=== PATIENT | male | born 1970 | race Caucasian/White ===

== ENCOUNTER 2018-08-04 16:36 | Emergency (ER) | payer BC ==
--- NOTE | 2018-08-04 19:15 | RAD REPORT ---
EXAM DESCRIPTION: RAD - Foot Right 3 View - 08/04/2018 6:50 pm CLINICAL HISTORY: Right foot pain FINDINGS: No fracture or dislocation is seen Moderate calcaneal spurs
--- NOTE | 2018-08-04 19:26 | ER ---
Nurse's Notes [facility] Name: Riley Whalen Age: 47 yrs Sex: Male : 1970 Arrival Date: 08/04/2018 Time: 16:39 Bed 12 Private MD: Diagnosis: Pain in right foot;Calcaneal spur, right foot Presentation: 08/04 16:44 Presenting complaint: Patient states: R heel pain x 1 week. Denies injury. Transition ss of care: patient was not received from another setting of care. Onset of symptoms was July 28, 2018. Risk Assessment: Do you want to hurt yourself or someone else? Patient reports no desire to harm self or others. Initial Sepsis Screen: Does the patient meet any 2 criteria? No. Patient's initial sepsis screen is negative. Does the patient have a suspected source of infection? No. Patient's initial sepsis screen is negative. Care prior to arrival: None. 16:44 Method Of Arrival: Ambulatory ss 16:44 Acuity: VIOLETA 4 ss Historical: - Allergies: 16:46 No Known Allergies; ss - Home Meds: 16:46 unknown blood pressure medication [Active]; ss - PMHx: 16:46 Hypertension; ss - PSHx: 16:46 None; ss - Immunization history:: Adult Immunizations up to date. - Social history:: Smoking status: Patient/guardian denies using tobacco. - Ebola Screening: : Patient denies exposure to infectious person Patient denies travel to an Ebola-affected area in the 21 days before illness onset. Screenin:10 Abuse screen: Denies threats or abuse. Denies injuries from another. Nutritional aj1 screening: No deficits noted. Tuberculosis screening: No symptoms or risk factors identified. 20:14 Fall Risk None identified. aj1 Assessment: 18:10 General: Appears in no apparent distress. uncomfortable, Behavior is calm, cooperative, aj1 appropriate for age. Pain: Complains of pain in heel of right foot. Neuro: Level of Consciousness is awake, alert, obeys commands, Oriented to person, place, time, situation. Cardiovascular: Patient's skin is warm and dry. Respiratory: Airway is patent Respiratory effort is even, unlabored, Respiratory pattern is regular, symmetrical. GI: No signs and/or symptoms were reported involving the gastrointestinal system. : No signs and/or symptoms were reported regarding the genitourinary system. EENT: No signs and/or symptoms were reported regarding the EENT system. Derm: No signs and/or symptoms reported regarding the dermatologic system. Skin is pink, warm \T\ dry. normal. Musculoskeletal: Range of motion: intact in all extremities. 19:10 Reassessment: Patient appears in no apparent distress at this time. No changes from aj1 previously documented assessment. Patient and/or family updated on plan of care and expected duration. Pain level reassessed. Patient is alert, oriented x 3, equal unlabored respirations, skin warm/dry/pink. 20:13 Reassessment: Patient appears in no apparent distress at this time. No changes from aj1 previously documented assessment. Patient and/or family updated on plan of care and expected duration. Pain level reassessed. Patient is alert, oriented x 3, equal unlabored respirations, skin warm/dry/pink. Vital Signs: 16:46 BP 150 / 99; Pulse 67; Resp 16 S; Temp 97.8(TE); Pulse Ox 97% on R/A; Weight 83.91 kg; ss Height 6 ft. 0 in. (182.88 cm); Pain 4/10; 16:46 Body Mass Index 25.09 (83.91 kg, 182.88 cm) ED Course: 16:39 Patient arrived in ED. as 16:45 Triage completed. ss 16:46 Arm band placed on right wrist. ss 17:57 Arturo Sadlana NP is PHCP. pm1 17:57 Chris Contreras MD is Attending Physician. pm1 18:10 Eloina Gregg, SANTOS is Primary Nurse. aj1 18:10 Patient has correct armband on for positive identification. Bed in low position. Call aj1 light in reach. Side rails up X 1. 18:10 No provider procedures requiring assistance completed. aj1 18:51 Foot Right 3 View XRAY In Process Unspecified. EDMS 20:14 Patient did not have IV access during this emergency room visit. aj1 Administered Medications: No medications were administered Outcome: 19:25 Discharge ordered by . pm1 20:14 Discharged to home ambulatory. aj1 20:14 Condition: good 20:14 Discharge instructions given to patient, Instructed on discharge instructions, follow up and referral plans. medication usage, Demonstrated understanding of instructions, follow-up care, medications, Prescriptions given X 2. 20:14 Patient left the ED. aj1 Signatures: Dispatcher [employer] EDEloina Villar RN RN aj1 Jewell Cain Shelby, RN RN ss Arturo Saldana, AGENCY CASHIER AGENCY CASHIER pm1
--- NOTE | 2018-08-04 19:26 | EDPHYS ---
Physician Documentation [facility] Name: Riley Whalen Age: 47 yrs Sex: Male : 1970 Arrival Date: 08/04/2018 Time: 16:39 Bed 12 Private MD: ED Physician Chris Contreras HPI: 08/04 19:21 This 47 yrs old Male presents to ER via Ambulatory with complaints of Right pm1 Foot Pain. 19:21 The patient presents with pain, that is acute. The complaints affect the right heel. pm1 Context: The problem was sustained at home, resulted from an unknown cause, the patient can fully bear weight, the patient is able to ambulate, Problem is a result from a previous injury: No. Onset: The symptoms/episode began/occurred 1 week(s) ago. Modifying factors: The symptoms are alleviated by nothing. the symptoms are aggravated by weight bearing. Associated signs and symptoms: Pertinent negatives calf tenderness, fever, swelling, tingling. Treatment prior to arrival includes: no previous treatment. Severity of symptoms: in the emergency department the symptoms are actually worse. The patient has not experienced similar symptoms in the past. The patient has not recently seen a physician. Historical: - Allergies: 16:46 No Known Allergies; ss - Home Meds: 16:46 unknown blood pressure medication [Active]; ss - PMHx: 16:46 Hypertension; ss - PSHx: 16:46 None; ss - Immunization history:: Adult Immunizations up to date. - Social history:: Smoking status: Patient/guardian denies using tobacco. - Ebola Screening: : Patient denies exposure to infectious person Patient denies travel to an Ebola-affected area in the 21 days before illness onset. ROS: 19:21 Constitutional: Negative for fever, chills, and weight loss, Eyes: Negative for injury, pm1 pain, redness, and discharge, ENT: Negative for injury, pain, and discharge, Neck: Negative for injury, pain, and swelling, Cardiovascular: Negative for chest pain, palpitations, and edema, Respiratory: Negative for shortness of breath, cough, wheezing, and pleuritic chest pain, Abdomen/GI: Negative for abdominal pain, nausea, vomiting, diarrhea, and constipation, Back: Negative for injury and pain. 19:21 Skin: Negative for injury, rash, and discoloration, Neuro: Negative for headache, weakness, numbness, tingling, and seizure. 19:21 MS/extremity: Positive for pain, of the right heel, Negative for decreased range of motion, deformity, paresthesias, swelling. Exam: 19:21 Constitutional: This is a well developed, well nourished patient who is awake, alert, pm1 and in no acute distress. Head/Face: Normocephalic, atraumatic. Eyes: Pupils equal round and reactive to light, extra-ocular motions intact. Lids and lashes normal. Conjunctiva and sclera are non-icteric and not injected. Cornea within normal limits. Periorbital areas with no swelling, redness, or edema. ENT: Nares patent. No nasal discharge, no septal abnormalities noted. Tympanic membranes are normal and external auditory canals are clear. Oropharynx with no redness, swelling, or masses, exudates, or evidence of obstruction, uvula midline. Mucous membranes moist. Neck: Trachea midline, no thyromegaly or masses palpated, and no cervical lymphadenopathy. Supple, full range of motion without nuchal rigidity, or vertebral point tenderness. No Meningismus. Chest/axilla: Normal chest wall appearance and motion. Nontender with no deformity. No lesions are appreciated. Cardiovascular: Regular rate and rhythm with a normal S1 and S2. No gallops, murmurs, or rubs. Normal PMI, no JVD. No pulse deficits. Respiratory: Lungs have equal breath sounds bilaterally, clear to auscultation and percussion. No rales, rhonchi or wheezes noted. No increased work of breathing, no retractions or nasal flaring. Abdomen/GI: Soft, non-tender, with normal bowel sounds. No distension or tympany. No guarding or rebound. No evidence of tenderness throughout. Back: No spinal tenderness. No costovertebral tenderness. Full range of motion. Skin: Warm, dry with normal turgor. Normal color with no rashes, no lesions, and no evidence of cellulitis. 19:21 Musculoskeletal/extremity: Extremities: grossly normal except: noted in the right heel: tenderness, There is no evidence of swelling, pain with passive extension and flexion of toes. No pain with palpation along plantar fascia. Vital Signs: 16:46 BP 150 / 99; Pulse 67; Resp 16 S; Temp 97.8(TE); Pulse Ox 97% on R/A; Weight 83.91 kg; ss Height 6 ft. 0 in. (182.88 cm); Pain 4/10; 16:46 Body Mass Index 25.09 (83.91 kg, 182.88 cm) ss MDM: 17:58 Patient medically screened. pm1 19:23 Data reviewed: vital signs. Data interpreted: Pulse oximetry: on room air is 97 %. pm1 Interpretation: normal. Counseling: I had a detailed discussion with the patient and/or guardian regarding: the historical points, exam findings, and any diagnostic results supporting the discharge/admit diagnosis, radiology results, the need for outpatient follow up, for definitive care, a millstone cleaner, to return to the emergency department if symptoms worsen or persist or if there are any questions or concerns that arise at home. 08/04 18:12 Order name: Foot Right 3 View XRAY; Complete Time: 19:20 pm1 Administered Medications: No medications were administered Disposition: 08/05 10:28 Co-signature as Attending Physician, Chris Contreras MD. Disposition: 08/04/18 19:25 Discharged to Home. Impression: Pain in right foot, Calcaneal spur, right foot. - Condition is Stable. - Discharge Instructions: Heel Spur, Foot Pain. - Prescriptions for Naprosyn 500 mg Oral Tablet - take 1 tablet by ORAL route 2 times per day take with food; 30 tablet. - Work release form, Medication Reconciliation Form, Thank You Letter, Antibiotic Education, Prescription Opioid Use form. - Follow up: Emergency Department; When: As needed; Reason: Worsening of condition. Follow up: Private Physician; When: 2 - 3 days; Reason: Recheck today's complaints, Continuance of care, Re-evaluation by your physician. - Problem is new. - Symptoms have improved. Signatures: Dispatcher [employer] Eloina Hui RN RN aj1 Adrianne Alegria RN RN ss Arturo Saldana, PHI MOTEL MANAGER pm1 Chris Contreras MD MD Corrections: (The following items were deleted from the chart) 08/04 20:14 19:25 08/04/2018 19:25 Discharged to Home. Impression: Pain in right foot; Calcaneal aj1 spur, right foot. Condition is Stable. Forms are Medication Reconciliation Form, Thank You Letter, Antibiotic Education, Prescription Opioid Use. Follow up: Emergency Department; When: As needed; Reason: Worsening of condition. Follow up: Private Physician; When: 2 - 3 days; Reason: Recheck today's complaints, Continuance of care, Re-evaluation by your physician. Problem is new. Symptoms have improved. pm1
== END 2018-08-04 20:14 | disposition home or self-care (01) ==
LOC: ER 16:36
DX: M79.671 Pain in right foot (principal); M77.31 Calcaneal spur, right foot; I10 Essential (primary) hypertension; Z79.899 Other long term (current) drug therapy
CPT/HCPCS: 99283

== ENCOUNTER 2019-02-05 05:37 | Emergency (ER) | payer BC ==
--- NOTE | 2019-02-05 06:15 | EDPHYS ---
Physician Documentation [facility] Name: Riley Whalen Age: 48 yrs Sex: Male : 1970 Arrival Date: 02/05/2019 Time: 05:41 Bed 8 Private MD: ED Physician David Smith HPI: 02/05 06:16 This 48 yrs old Male presents to ER via Ambulatory with complaints of ELBOW kb PAIN. 06:23 The patient or guardian complains of pain, that is acute, swelling. The complaints kb affect the right elbow. Context: The problem was sustained at home, resulted from unknown cause. Onset: The symptoms/episode began/occurred last night. Treatment prior to arrival includes: no previous treatment. Modifying factors: The symptoms are alleviated by nothing. the symptoms are aggravated by nothing. Associated signs and symptoms: Pertinent positives: pain, swelling. Severity of symptoms: At their worst the symptoms were moderate, in the emergency department the symptoms are unchanged. The patient has not experienced similar symptoms in the past. The patient has not recently seen a physician. Pt reports elbow pain and swelling that started in the middle of the night. Denies injury or trauma. . Historical: - Allergies: 06:13 No Known Allergies; ea - Home Meds: 06:13 unknown blood pressure medication [Active]; ea - PMHx: 06:13 Hypertension; ea - PSHx: 06:13 None; ea - Immunization history:: Adult Immunizations up to date. - Social history:: Smoking status: Patient/guardian denies using tobacco. - Ebola Screening: : No symptoms or risks identified at this time. ROS: 06:24 Constitutional: Negative for fever, chills, and weight loss, Neck: Negative for injury, kb pain, and swelling, Cardiovascular: Negative for chest pain, palpitations, and edema, Respiratory: Negative for shortness of breath, cough, wheezing, and pleuritic chest pain, Abdomen/GI: Negative for abdominal pain, nausea, vomiting, diarrhea, and constipation, Back: Negative for injury and pain, Skin: Negative for injury, rash, and discoloration, Neuro: Negative for headache, weakness, numbness, tingling, and seizure. 06:24 MS/extremity: Positive for pain, swelling, tenderness, of the right elbow. Exam: 06:24 Constitutional: This is a well developed, well nourished patient who is awake, alert, kb and in no acute distress. Head/Face: Normocephalic, atraumatic. Chest/axilla: Normal chest wall appearance and motion. Nontender with no deformity. No lesions are appreciated. Cardiovascular: Regular rate and rhythm with a normal S1 and S2. No gallops, murmurs, or rubs. Normal PMI, no JVD. No pulse deficits. Respiratory: Lungs have equal breath sounds bilaterally, clear to auscultation and percussion. No rales, rhonchi or wheezes noted. No increased work of breathing, no retractions or nasal flaring. Abdomen/GI: Soft, non-tender, with normal bowel sounds. No distension or tympany. No guarding or rebound. No evidence of tenderness throughout. Skin: Warm, dry with normal turgor. Normal color with no rashes, no lesions, and no evidence of cellulitis. Neuro: Awake and alert, GCS 15, oriented to person, place, time, and situation. Cranial nerves II-XII grossly intact. Motor strength 5/5 in all extremities. Sensory grossly intact. Cerebellar exam normal. Normal gait. 06:24 Musculoskeletal/extremity: Extremities: grossly normal except: noted in the right elbow: pain, swelling, tenderness, ROM: intact in all extremities, Circulation is intact in all extremities. Sensation intact. Vital Signs: 05:57 BP 129 / 101; Pulse 85; Resp 18; Temp 98; Pulse Ox 97% on R/A; Weight 124.74 kg; Height ea 6 ft. (182.88 cm); 06:01 BP 130 / 93; Pulse 85; Pulse Ox 98% on R/A; ak1 05:57 Body Mass Index 37.30 (124.74 kg, 182.88 cm) ea MDM: 05:55 Patient medically screened. kb 06:14 Data reviewed: vital signs, nurses notes. Data interpreted: Pulse oximetry: on room air kb is 98 %. Interpretation: normal. Counseling: I had a detailed discussion with the patient and/or guardian regarding: the historical points, exam findings, and any diagnostic results supporting the discharge/admit diagnosis, the need for outpatient follow up, a family practitioner, to return to the emergency department if symptoms worsen or persist or if there are any questions or concerns that arise at home. 06:25 ED course: Bursitis noted to right elbow. No redness or induration noted. Does not kb appear infected. ED course: Bursitis noted to right elbow. No redness or induration noted. Does not appear infected at this time. Educated to follow up or return if signs of infection develop. Administered Medications: 06:17 Drug: TORadol 30 mg Route: IM; Site: left deltoid; ea 06:26 Follow up: Response: No adverse reaction ea Disposition: 06:33 Co-signature as Attending Physician, David Smith MD. rn Disposition: 02/05/19 06:15 Discharged to Home. Impression: Other bursitis of elbow, right elbow. - Condition is Stable. - Discharge Instructions: Bursitis, [id number]. - Prescriptions for Tylenol- Codeine #3 300-30 mg Oral Tablet - take 1 tablet by ORAL route every 6 hours As needed; 15 tablet. Diclofenac Sodium 75 mg Oral Tablet Sustained Release - take 1 tablet by ORAL route 2 times per day; 30 tablet. - Medication Reconciliation Form, Thank You Letter, Antibiotic Education, Prescription Opioid Use, Work release form form. - Follow up: Emergency Department; When: As needed; Reason: Worsening of condition. Follow up: Private Physician; When: 2 - 3 days; Reason: Recheck today's complaints, Continuance of care, Re-evaluation by your physician. Signatures: Deann Hess, TEST PREPARER-C TEST PREPARER-Ckb David Smith MD MD rn Antunez, Elena, RN RN ea Corrections: (The following items were deleted from the chart) 06:26 06:15 02/05/2019 06:15 Discharged to Home. Impression: Other bursitis of elbow, right ea elbow. Condition is Stable. Forms are Medication Reconciliation Form, Thank You Letter, Antibiotic Education, Prescription Opioid Use. Follow up: Emergency Department; When: As needed; Reason: Worsening of condition. Follow up: Private Physician; When: 2 - 3 days; Reason: Recheck today's complaints, Continuance of care, Re-evaluation by your physician. kb
--- NOTE | 2019-02-05 06:15 | ER ---
Nurse's Notes [facility] Name: Riley Whalen Age: 48 yrs Sex: Male : 1970 Arrival Date: 02/05/2019 Time: 05:41 Bed 8 Private MD: Diagnosis: Other bursitis of elbow, right elbow Presentation: 02/05 05:54 Presenting complaint: Patient states: Patient reports right elbow pain that stated this ea AM, states "I am able to move it but it hurts with touch and over extending it". Transition of care: patient was not received from another setting of care. Onset of symptoms was February 05, 2019. Risk Assessment: Do you want to hurt yourself or someone else? Patient reports no desire to harm self or others. Initial Sepsis Screen: Does the patient meet any 2 criteria? No. Patient's initial sepsis screen is negative. Does the patient have a suspected source of infection? No. Patient's initial sepsis screen is negative. Care prior to arrival: None. 05:54 Method Of Arrival: Ambulatory ea 05:54 Acuity: VIOLETA 4 ea Triage Assessment: 05:57 General: Appears uncomfortable, Behavior is calm, cooperative, appropriate for age. ea Pain: Complains of pain in right elbow. Historical: - Allergies: 06:13 No Known Allergies; ea - Home Meds: 06:13 unknown blood pressure medication [Active]; ea - PMHx: 06:13 Hypertension; ea - PSHx: 06:13 None; ea - Immunization history:: Adult Immunizations up to date. - Social history:: Smoking status: Patient/guardian denies using tobacco. - Ebola Screening: : No symptoms or risks identified at this time. Screenin:56 Abuse screen: Denies threats or abuse. Nutritional screening: No deficits noted. ea Tuberculosis screening: No symptoms or risk factors identified. Fall Risk None identified. Assessment: 05:58 General: Appears in no apparent distress. Behavior is calm, cooperative, appropriate ea for age. Pain: Complains of pain in right elbow. Neuro: Level of Consciousness is awake, alert, obeys commands, Oriented to person, place, time. Cardiovascular: Patient's skin is warm and dry. Respiratory: Airway is patent Respiratory effort is even, unlabored, Respiratory pattern is regular, symmetrical. Derm: Skin is pink, warm \\T\\ dry. Musculoskeletal: Swelling present in right elbow. 06:26 Reassessment: Patient and/or family updated on plan of care and expected duration. Pain ea level reassessed. Patient is alert, oriented x 3, equal unlabored respirations, skin warm/dry/pink. Discharge instruction given to patient, verbalized the understanding of instruction. Pt left ED ambulatory tolerating well. Vital Signs: 05:57 BP 129 / 101; Pulse 85; Resp 18; Temp 98; Pulse Ox 97% on R/A; Weight 124.74 kg; Height ea 6 ft. (182.88 cm); 06:01 BP 130 / 93; Pulse 85; Pulse Ox 98% on R/A; ak1 05:57 Body Mass Index 37.30 (124.74 kg, 182.88 cm) ea ED Course: 05:41 Patient arrived in ED. es 05:53 Reina Castellon, RN is Primary Nurse. ea 05:55 [facility]C [facility] kb 05:55 David Smith MD is Attending Physician. kb 05:56 Triage completed. ea 05:58 Patient has correct armband on for positive identification. Bed in low position. Call ea light in reach. 05:58 Arm band placed on right wrist. Patient placed in an exam room, on a stretcher, on ea pulse oximetry. 06:25 No provider procedures requiring assistance completed. Patient did not have IV access ea during this emergency room visit. Administered Medications: 06:17 Drug: TORadol 30 mg Route: IM; Site: left deltoid; ea 06:26 Follow up: Response: No adverse reaction ea Outcome: 06:15 Discharge ordered by . kb 06:25 Condition: stable ea 06:25 Discharge instructions given to patient, Instructed on discharge instructions, follow up and referral plans. medication usage, Demonstrated understanding of instructions, follow-up care, medications, Prescriptions given X 3. 06:26 Discharged to home ambulatory. ea 06:26 Patient left the ED. ea Signatures: Deann Hess FNP-C FNP-Ckb Salyer, Edna es Krenek, Amber RN RN ak1 Reina Castellon RN RN ea
[2019-02-05] MEDS ORDERED: KETOROLAC 30 MG/ML INJ ONE (06:20)
[2019-02-05 06:39] VITALS: TEMP 98
[2019-02-05 06:41] VITALS: BP 130/93; O2SAT 98
== END 2019-02-05 06:26 | disposition home or self-care (01) ==
LOC: ER 05:37
DX: M71.521 Other bursitis, not elsewhere classified, right elbow (principal); I10 Essential (primary) hypertension
CPT/HCPCS: 96372; 99283

== ENCOUNTER 2021-08-18 08:22 | Emergency (ER) | payer BC ==
[2021-08-18 08:44] LABS: Absolute Lymphocytes (CBC) 0.8 K/uL (0.7-4.9); Hematocrit 45.4 % (39.6-49.0); Lymphocytes % 17.5 % (15.3-44.8); MPV 9.6 fL (7.6-11.3); RBC Red Blood Cell Count 4.83 M/uL (4.33-5.43)
--- NOTE | 2021-08-18 08:50 | RAD REPORT ---
EXAM DESCRIPTION: CT - Stone Protocol - 08/18/2021 8:38 am CLINICAL HISTORY: Flank pain. flank pain COMPARISON: No comparisons TECHNIQUE: Axial images were obtained without oral or IV contrast. Lack of contrast limits solid org an and vascular assessment. The [id number] spans the entirety of the system partially obscuring uppermost abdomen and lung bases. Coronal reformatted images were obtained and reviewed. All CT scans are performed using dose optimization technique as appropriate and may include automated exposure control or mA/KV adjustment according to patient size. FINDINGS: The lower lung mohr are clear. Imaged portions of the liver and spleen show no suspicious findings on non-contrast imaging. The panc reas and adrenal glands are normal. No pathologic lymphadenopathy in the abdomen or pelvis. 2 mm calculus left UVJ with mild left hydronephrosis. Punctate calculus also seen inferior calyx left kidney. No bowel obstruction, free air, free fluid or abscess. Normal appendix noted.Sigmoid diverticulosis w ithout diverticulitis. No significant bony abnormality. Small fat containing left inguinal hernia. IMPRESSION: 2 mm calculus left UVJ with mild left hydronephrosis. Punctate calculus inferior left kidney. Sigmoid diverticulosis without diverticulitis. Fat containing left inguinal hernia.
[2021-08-18] MEDS ORDERED: TAMSULOSIN 0.4 MG SR CAP ONE (09:02)
[2021-08-18] MEDS ORDERED: NA CHLORIDE 0.9% 1,000 ML ONE (09:02)
[2021-08-18 09:41] LABS: Albumin 4.2 g/dL (3.4-5.0); Bilirubin Total 1.3 mg/dL (0.2-1.0); Potassium 3.7 mmol/L (3.5-5.1); Protein, Total 7.3 g/dL (6.4-8.2)
[2021-08-18] MEDS ORDERED: MORPHINE 4 MG/ML SYR ONE (10:34)
[2021-08-18 10:47] LABS: Urine Blood 3+ (Negative); Urine Glucose Negative (Negative); Urine Protein 1+ (Negative)
--- NOTE | 2021-08-18 10:59 | ER ---
Nurse's Notes [facility] Name: Riley Whalen Age: 50 yrs Sex: Male : 1970 Arrival Date: 08/18/2021 Time: 08:25 Bed 7 Private MD: Diagnosis: Calculus of ureter Presentation: 08/18 08:25 Chief complaint: EMS states: pt woke up this am with lt flank pain, non radiating and jh6 with n/v. Coronavirus screen: Vaccine status: Patient reports receiving the 2nd dose of the covid vaccine. Ebola Screen: Patient negative for fever greater than or equal to 101.5 degrees Fahrenheit, and additional compatible Ebola Virus Disease symptoms Patient denies exposure to infectious person. Patient denies travel to an Ebola-affected area in the 21 days before illness onset. Initial Sepsis Screen: Does the patient meet any 2 criteria? No. Patient's initial sepsis screen is negative. Does the patient have a suspected source of infection? No. Patient's initial sepsis screen is negative. Risk Assessment: Do you want to hurt yourself or someone else? Patient reports no desire to harm self or others. Onset of symptoms was August 18, 2021. 08:25 Method Of Arrival: EMS: [facility] 08:25 Acuity: VIOLETA 3 6 Triage Assessment: 08:31 General: Appears in no apparent distress. Behavior is calm, cooperative. Pain: Denies [facility] pain. Historical: - Allergies: 08:32 No Known Allergies; jh6 - PMHx: 08:30 Hypertension; 6 - Immunization history:: Adult Immunizations. - Social history:: Smoking status: Patient denies any tobacco usage or history of. Screenin:32 Abuse screen: Denies threats or abuse. Abuse screen: Denies threats or abuse. 6 Nutritional screening: No deficits noted. Tuberculosis screening: No symptoms or risk factors identified. Fall Risk IV access (20 points). Assessment: 08:32 General: Appears in no apparent distress. Behavior is calm, cooperative. Pain: Denies 6 pain. 10:39 Reassessment: Patient appears in no apparent distress at this time. Patient and/or jd3 family updated on plan of care and expected duration. Pain level reassessed. Patient is alert, oriented x 3, equal unlabored respirations, skin warm/dry/pink. 11:26 Reassessment: Patient appears in no apparent distress at this time. Patient and/or jd3 family updated on plan of care and expected duration. Pain level reassessed. Patient is alert, oriented x 3, equal unlabored respirations, skin warm/dry/pink. Patient states feeling better. Vital Signs: 08:25 BP 162 / 117; Pulse 77; Resp 16; Temp 97.8; Pulse Ox 100% ; Weight 106.59 kg; Height 6 6 ft. 0 in. (182.88 cm); Pain 0/10; 10:39 BP 167 / 120; Pulse 73; Resp 16 S; Pulse Ox 100% on R/A; jd3 08:25 Body Mass Index 31.87 (106.59 kg, 182.88 cm) [facility] ED Course: 08:25 Patient arrived in ED. [facility] 08:25 Brittny Lua, SANTOS is Primary Nurse. [facility] 08:25 Michael Parker PA is PHCP. [facility] 08:25 Amado Rain MD is Attending Physician. [facility] 08:30 Triage completed. jh6 08:31 Arm band placed on left wrist. jh6 08:31 Initial lab(s) drawn, by lab head, sent to lab. Inserted saline lock: Maintain EMS IV. 6 Dressing intact. Good blood return noted. Site clean \T\ dry. Gauge \T\ site: 20g lt ac. 08:33 Patient moved to ND. jh6 08:33 Bed in low position. Call light in reach. Side rails up X 1. Adult w/ patient. jh6 08:38 Inserted saline lock: 24 gauge in right hand, using aseptic technique. jd3 08:39 CT Stone Protocol In Process Unspecified. EDMS 10:58 Devante Tran MD is Referral Physician. [facility] 11:26 No provider procedures requiring assistance completed. IV discontinued, intact, jd3 bleeding controlled, No redness/swelling at site. Pressure dressing applied. Administered Medications: 09:02 Drug: NS 0.9% 1000 ml Route: IV; Rate: 1 bolus; Site: left antecubital; jd3 10:00 Follow up: Response: No adverse reaction; IV Status: Completed infusion j 09:02 Drug: Flomax (tamsulosin) 0.4 mg Route: PO; jd3 10:00 Follow up: Response: No adverse reaction jd3 Outcome: 10:58 Discharge ordered by . serenity 11:27 Discharged to home ambulatory, with family. jd3 11:27 Condition: stable 11:27 Discharge instructions given to patient, family, Instructed on discharge instructions, follow up and referral plans. medication usage, Demonstrated understanding of instructions, follow-up care, medications, Prescriptions given X 4. 11:28 Patient left the ED. jd3 Signatures: Dispatcher [employer] EDMS Michael Parker PA PA jmm Davies, Jonathon, RN RN jd3 Brittny Lua RN RN jh6
--- NOTE | 2021-08-18 10:59 | EDPHYS ---
Physician Documentation [facility] Name: Riley Whalen Age: 50 yrs Sex: Male : 1970 Arrival Date: 08/18/2021 Time: 08:25 Bed 7 Private MD: ED Physician Amado Rain HPI: 08/18 08:50 This 50 yrs old Male presents to ER via EMS with complaints of Flank pain. [facility] 08:50 The patient complains of pain in the left flank. Onset: The symptoms/episode jmm began/occurred acutely, this morning. Modifying factors: The symptoms are alleviated by nothing. the symptoms are aggravated by nothing. Associated signs and symptoms: Pertinent positives: nausea, vomiting, Pertinent negatives: diarrhea, fever, hematuria. The patient has not experienced similar symptoms in the past. This a 50-year-old male with history of hypertension the presents emerged part with complaints of left-sided back pain and flank pain which woke him early this morning. Patient also complains of nausea and vomiting. Denies radiation to the leg. Denies leg weakness, denies urinary or bowel problems. Patient states having kidney stones in the past but pain is not similar to that episode.. Historical: - Allergies: 08:32 No Known Allergies; jh6 - PMHx: 08:30 Hypertension; 6 - Immunization history:: Adult Immunizations. - Social history:: Smoking status: Patient denies any tobacco usage or history of. ROS: 08:50 Constitutional: Negative for fever, chills, and weight loss, Cardiovascular: Negative jm for chest pain, palpitations, and edema, Respiratory: Negative for shortness of breath, cough, wheezing, and pleuritic chest pain. 08:50 Back: Positive for flank pain, on the left. 08:50 All other systems are negative. Exam: 08:50 Constitutional: This is a well developed, well nourished patient who is awake, alert, jmm and in no acute distress. Head/Face: atraumatic. Eyes: EOMI, no conjunctival erythema appreciated ENT: Moist Mucus Membranes Neck: Trachea midline, Supple Chest/axilla: Normal chest wall appearance and motion. Cardiovascular: Regular rate and rhythm. No edema appreciated Respiratory: Normal respirations, no respiratory distress appreciated Abdomen/GI: Non distended, soft Back: Normal ROM Skin: General appearance color normal MS/ Extremity: Moves all extremities, no obvious deformities appreciated, no edema noted to the lower extremities Neuro: Awake and alert Psych: Behavior is normal, Mood is normal, Patient is cooperative and pleasant Vital Signs: 08:25 BP 162 / 117; Pulse 77; Resp 16; Temp 97.8; Pulse Ox 100% ; Weight 106.59 kg; Height 6 6 ft. 0 in. (182.88 cm); Pain 0/10; 10:39 BP 167 / 120; Pulse 73; Resp 16 S; Pulse Ox 100% on R/A; jd3 08:25 Body Mass Index 31.87 (106.59 kg, 182.88 cm) 6 MDM: 08:26 Patient medically screened. [facility] 10:57 Data reviewed: vital signs, nurses notes. Counseling: I had a detailed discussion with serenity the patient and/or guardian regarding: the historical points, exam findings, and any diagnostic results supporting the discharge/admit diagnosis, lab results, radiology results, the need for outpatient follow up, to return to the emergency department if symptoms worsen or persist or if there are any questions or concerns that arise at home. 08/18 08:26 Order name: CBC with Diff; Complete Time: 08:50 [facility] 08/18 08:26 Order name: CMP; Complete Time: 10:32 [facility] 08/18 08:26 Order name: Lipase; Complete Time: 10:32 [facility] 08/18 08:28 Order name: CT Stone Protocol; Complete Time: 08:52 [facility] 08/18 10:47 Order name: Urine Dipstick-Ancillary; Complete Time: 10:55 [facility] 08/18 08:26 Order name: IV Saline Lock; Complete Time: 08:29 [facility] 08/18 08:26 Order name: Labs collected and sent; Complete Time: 08: [facility] 08/18 08:26 Order name: Urine Dipstick-Ancillary (obtain specimen); Complete Time: 10:47 [facility] Administered Medications: 09:02 Drug: NS 0.9% 1000 ml Route: IV; Rate: 1 bolus; Site: left antecubital; jd3 10:00 Follow up: Response: No adverse reaction; IV Status: Completed infusion jd3 09:02 Drug: Flomax (tamsulosin) 0.4 mg Route: PO; jd3 10:00 Follow up: Response: No adverse reaction jd3 Disposition: 16:29 Co-signature as Attending Physician, Amado Rain MD I agree with the assessment and kdr plan of care. Disposition Summary: 08/18/21 10:58 Discharge Ordered Location: Home [facility] Condition: Stable [facility] Diagnosis - Calculus of ureter [facility] Followup: [facility] - With: Devante Tran MD - When: 2 - 3 days - Reason: Recheck today's complaints, Continuance of care, Re-evaluation by your physician Discharge Instructions: - Discharge Summary Sheet [facility] - Kidney Stones [facility] Forms: - Medication Reconciliation Form [facility] - Thank You Letter [facility] - Antibiotic Education [facility] - Prescription Opioid Use [facility] Prescriptions: - ondansetron 4 mg Oral tablet,disintegrating - take 1 tablet by ORAL route every 4-6 hours As needed; 20 tablet; Refills: 0, [facility] Product Selection Permitted - Ibuprofen 800 mg Oral Tablet - take 1 tablet by ORAL route 1-2 times daily As needed take with food; 30 jmm tablet; Refills: 0, Product Selection Permitted - Ultracet 37.5-325 mg Oral Tablet - take 1 tablet by ORAL route every 6 hours - for up to 5 days; do not exceed 8 jmm tablets per day.; 30 tablet; Refills: 0, Product Selection Permitted - Flomax 0.4 mg Oral capsule - take 1 capsule by ORAL route once daily 1/2 hour following the same meal each [facility] day; 10 capsule; Refills: 0, Product Selection Permitted Signatures: Dispatcher [employer] [facility] Amado Rain MD MD kdr Mickail, Joel, PA PA [facility] Yasir North RN RN jd3 Brittny Lua RN RN jh6
[2021-08-18 11:46] VITALS: TEMP 97.8; O2SAT 100
[2021-08-18 11:48] VITALS: BP 167/120
== END 2021-08-18 11:28 | disposition home or self-care (01) ==
LOC: ER 08:22
DX: N20.1 Calculus of ureter (principal); I10 Essential (primary) hypertension; Z87.442 Personal history of urinary calculi
CPT/HCPCS: 85025; 36415; 81003; 83690; 80053; 76377; 74176; 96360; 99284; J7030

== ENCOUNTER 2023-03-04 18:45 | Emergency (ER) | payer BC ==
--- OUTSIDE RECORDS SUMMARY | 2023-03-04 19:07 | XMS REPORT | Continuity of Care Document ---
:1970 Author Organization [facility] t Address [address] [place] [address] Care Team Providers Name Role Phone Unavailable Unavailable Unavailable Problems This patient has no known problems. Allergies, Adverse Reactions, Alerts This patient has no known allergies or adverse reactions. Medications This patient has no known medications. Procedures This patient has no known procedures. Results Test Description Test Time Test Comments Results Result Comments Source SARS-CoV-2 (COVID-19), RT-PCR/TMA 2021-05-03 10:54:31 Test Item Value Reference Range Interpretation Comme nts SARS-CoV-2 INTERPRETATION NEGATIVE SEE NOTE S ARS-CoV-2 RNA NOT (test code = 54745) DETECTED Negative results do not preclude SARS-C oV-2 infection and should notb e used as the sole basis for patient management deci sions. Negativeresults must be combined with c linical observations, p atient history,and epi demiological information. Op timum specimen types and timin gfor peak viral levels during i nfections caused by SARS-CoV-2 h ave notbeen determined. Col lection of multiple specim ens or types ofspecimens may be necessary to detect virus. I mproper specimencollect ion and handling, seque nce variability under primers/p robes,or organism presen t below the limit of detect ion may lead to falsenegative r esults. Positive and negative pr edictive values oftesting are h ighly dependent on prevalence. False negative testresults are more likely when prevalence is high. SOURCE (test code = 58167) NASOPHARYNGEAL Note: Methodology is Loraine Mague Real-Time RT-PCR. The expected result or reference range is NEGATI VE (Not Detected). For more information regarding COVID -19 testing to include clinica linformation, methodology det ail, intended use, FDA author ization andrecommended fact sheets for patients or hea lthcare providers, see [facility] Announcement: S ARS-CoV-2 (COVID-19) by N RIDDHI at URL below (note,fact shee ts are provided by method given in report:https:// www.[employer]/ clinicians/dony nt-communication s/ Alternativel y, see downloadable PD F fact sheet at:https://www. [employer]/COVI D-19-RT-PCR UNL ESS OTHERWISE INDICATED, ALL TESTING PERFORMED [facility], [facility]. [address] [place] [address] 4 ETHICS INSTRUCTOR: Maco ESQUIVEL [id number] CAP ACCREDITATION N O. [id number]
[2023-03-04] MEDS ORDERED: METOCLOPRAMIDE 10 MG/2mL INJ ONE (20:03)
[2023-03-04] MEDS ORDERED: MORPHINE 4 MG/ML SYR ONE (20:04)
[2023-03-04 20:14] LABS: Protime INR 1.01
[2023-03-04 20:15] LABS: Absolute Lymphocytes (CBC) 1.6 K/uL (0.7-4.9); Hematocrit 42.9 % (39.6-49.0); Lymphocytes % 30.8 % (15.3-44.8); MCV 93.2 fL (80-100); MPV 9.7 fL (7.6-11.3); Platelets 145 thou/uL (152-406); RBC Red Blood Cell Count 4.61 M/uL (4.33-5.43)
[2023-03-04 20:27] LABS: Potassium 3.6 mEq/L (3.5-5.1); Troponin High Sensitivity 6.9 pg/mL (<58.9)
--- NOTE | 2023-03-04 21:09 | RAD REPORT ---
EXAM DESCRIPTION: Joaquín Angio03/04/2023 8:47 pm CLINICAL HISTORY: Headache. Right-sided neck COMPARISON: None TECHNIQUE: 100 cc Isovue [address] angiogram of the neck was obtained. 3D MIPS reconstruction performed. All CT scans are performed using dose optimization technique as appropriate and may include automated exposure control or mA/KV adjustment according to patient size. FINDINGS: Mild plaque is present within common carotid, internal carotid and external carotid arteri es bilaterally Moderate calcified plaque distal left vertebral artery. Mild calcified plaque distal right vertebral artery. Right vertebral artery dominant No dissection is seen. IMPRESSION: Calcified plaque distal left vertebral artery result in a moderate stenosis [place] crieria Mild stenosis 0 to 49 % Moderate stenosis 50-69% Severe stenosis 70-99%
--- NOTE | 2023-03-04 21:13 | RAD REPORT ---
EXAM DESCRIPTION: CT - Head Brain Wo Cont - 03/04/2023 8:47 pm CLINICAL HISTORY: Headache COMPARISON: none TECHNIQUE: Computed axial tomography of the head was obtained. IV contrast was not requested. All CT scans are performed using dose optimization technique as appropriate and may include automated exposure control or mA/KV adjustment according to patient size. FINDINGS: An intracranial bleed is not seen The ventricles are normal in caliber No significant hypodense areas within the brain visualized No extra-axial fluid collection is noted. Fluid within the sinuses/ mastoids is not seen IMPRESSION: No acute intracranial abnormality is seen If patient's symptoms persist MRI of the brain would be recommended Refer to the CT angiogram head for artery findings
--- NOTE | 2023-03-04 21:24 | RAD REPORT ---
EXAM DESCRIPTION: CTHead angio03/04/2023 8:47 pm CLINICAL HISTORY: Headache and right neck pain COMPARISON: None TECHNIQUE: 100 cc Isovue [address] angiogram of the head was obtained. 3D MIPS reconstruction performed. All CT scans are performed using dose optimization technique as appropriate and may include automated exposure control or mA/KV adjustment according to patient size. FINDINGS: Dolichoectasia of the vertebrobasilar artery. Basilar artery measures 8 millimeters. Dolichoectasia right internal carotid artery at the [place] measures 8 millimeters Anterior, middle and posterior cerebral arteries unremarkable A significant stenosis is not noted. 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
--- NOTE | 2023-03-04 21:30 | EDPHYS ---
Physician Documentation [facility] Name: Riley Whalen Age: 52 yrs Sex: Male : 1970 Arrival Date: 03/04/2023 Time: 18:45 Bed 3 Private MD: ED Physician Pranay Hernandez HPI: 03/04 19:19 This 52 yrs old Male presents to ER via Ambulatory with complaints of Neck pain. rn 19:19 The patient or guardian complains of pain, that is acute. The symptoms are located on rn the right posterior aspect of neck. Onset: The symptoms/episode began/occurred 2 day(s) ago. Context: The problem was sustained at an unknown location, The neck injury/problem resulted from from unknown cause. Associated signs and symptoms: Pertinent positives: headache, Pertinent negatives: fever, nausea, numbness, tingling, vomiting, weakness. The pain does not radiate. Modifying factors: The symptoms are alleviated by OTC meds, the symptoms are aggravated by nothing. Severity of symptoms: At their worst the symptoms were moderate, in the emergency department the symptoms are unchanged. The patient has not experienced similar symptoms in the past. The patient has not recently seen a physician. Patient reports right posterior headache at base of skull that began 2 days ago. No trauma. No focal neurological complaints. No vision changes. Denies pain with movement or palpation. Pain is relieved and resolves with Motrin but comes back when Motrin wears off. No family history of brain tumor or aneurysm. No trouble swallowing or breathing. No fever. No injury.. Historical: - Allergies: 19:06 No Known Allergies; vc1 - Home Meds: 19:06 unknown blood pressure medication [Active]; losartan oral [Active]; vc1 - PMHx: 19:06 Hypertension; vc1 - PSHx: 19:06 None; vc1 - Immunization history:: Client reports receiving the 2nd dose of the Covid vaccine. - Social history:: Smoking status: Patient denies any tobacco usage or history of. - Family history:: not pertinent. - Hospitalizations: : No recent hospitalization is reported. ROS: 19:19 Constitutional: Negative for fever, chills, and weight loss, Eyes: Negative for injury, rn pain, redness, and discharge, Neck: Negative for injury, and swelling, Cardiovascular: Negative for chest pain, palpitations, and edema, Respiratory: Negative for shortness of breath, cough, wheezing, and pleuritic chest pain, Abdomen/GI: Negative for abdominal pain, nausea, vomiting, diarrhea, and constipation, MS/Extremity: Negative for injury and deformity, Skin: Negative for injury, rash, and discoloration, Neuro: Positive for posterior headache, negative for weakness or numbness Exam: 19:19 Constitutional: This is a well developed, well nourished patient who is awake, alert, rn and in no acute distress. Head/Face: Normocephalic, atraumatic. Neck: Trachea midline, no masses palpated, and no cervical lymphadenopathy. Supple, full range of motion without nuchal rigidity, or vertebral point tenderness. No Meningismus. Cardiovascular: Regular rate and rhythm. No pulse deficits. Respiratory: No increased work of breathing, no retractions or nasal flaring. Skin: Warm, dry MS/ Extremity: Pulses equal, no cyanosis. Neuro: Awake and alert, GCS 15, oriented to person, place, time, and situation. Cranial nerves II-XII grossly intact. Motor strength 5/5 in all extremities. Sensory grossly intact. Cerebellar exam normal. Normal gait. 20:38 ECG was reviewed by the Attending Physician. rn Vital Signs: 19:03 BP 183 / 135; Pulse 71; Resp 16; Temp 98; Pulse Ox 99% ; Weight 83.91 kg; Height 6 ft. vc1 0 in. ; Pain 10/10; 19:59 BP 164 / 124; Pulse 84; Resp 17 S; Pulse Ox 97% on R/A; lg3 20:20 BP 140 / 112; Pulse 72; Resp 16; Pulse Ox 94% on R/A; jb4 21:01 BP 140 / 96; Pulse 66; Resp 16; Pulse Ox 95% ; jb4 19:03 Body Mass Index 25.09 (83.91 kg, 182.88 cm) vc1 19:03 Pain Scale: Adult vc1 19:03 Out of blood pressure meds, takes Losartan vc1 MDM: 19:04 Patient medically screened. rn 21:29 Data reviewed: nurses notes, lab test result(s), radiologic studies. ED course: sp3 Torturous vertebral basilar artery noted as per CT findings. No intracranial hemorrhage noted. No significant flow abnormality noted. Blood pressure has come down to 140/96 and his headache is now almost completely resolved. We will safely discharge him home with follow-up with his PCP.. 03/04 19:11 Order name: CBC with Diff; Complete Time: : rn 03/04 19:11 Order name: Basic Metabolic Panel; Complete Time: : rn 03/04 19:11 Order name: Protime (+inr); Complete Time: : rn 03/04 19:11 Order name: Ptt, Activated; Complete Time: : rn 03/04 19:11 Order name: Troponin High Sensitivity; Complete Time: 20: rn 03/04 19:11 Order name: CT Head Brain wo Cont; Complete Time: : rn 03/04 19:11 Order name: CT Head Angio; Complete Time: : rn 03/04 19:11 Order name: Neck Angio CT; Complete Time: : rn 03/04 19:11 Order name: EKG; Complete Time: 19: rn 03/04 19:11 Order name: IV Start; Complete Time: 20: rn 03/04 19:11 Order name: EKG - Nurse/Tech; Complete Time: 20: rn EC:38 Rate is 67 beats/min. Rhythm is regular. QRS [place] is Normal. SC interval is normal. QT rn interval is normal. T waves are Normal. No ST changes noted. Clinical impression: NSR w/ Non-specific ST/T Changes. Interpreted by me. Reviewed by me. Administered Medications: 19:57 Drug: Ondansetron IVP 4 mg IVP once; over 2 minutes Route: IVP; Site: left antecubital; jb4 21:35 Follow up: Response: No adverse reaction lg3 19:57 Drug: metoCLOPramide IVP 5 mg IVP once; over 1 to 2 minutes Route: IVP; Site: left jb4 antecubital; 21:35 Follow up: Response: No adverse reaction lg3 19:57 Drug: cloNIDine PO 0.1 mg PO once Route: PO; jb4 21:35 Follow up: Response: No adverse reaction; Marked relief of symptoms; Blood pressure is lg3 lowered 19:58 Drug: morphine IVP or IV 4 mg IVP once over 4 mins Route: IVP; Infused Over: 4 mins; jb4 Site: left antecubital; 21:35 Follow up: Response: No adverse reaction; Marked relief of symptoms lg3 21:34 Not Given (Physician Discretion): clonidine0.1 mg PO once lg3 Disposition Summary: 03/04/23 21:30 Discharge Ordered Notes: Location: Home sp3 Condition: Stable sp3 Diagnosis - Headache, hypertension induced headache, hypertensive urgency sp3 Followup: sp3 - With: Private Physician - When: Upon discharge from the Emergency Department - Reason: Continuance of care Followup: sp3 - With: Bartolome Coronel MD - When: Upon discharge from the Emergency Department - Reason: Recheck today's complaints Discharge Instructions: - Discharge Summary Sheet sp3 - General Headache Without Cause sp3 - Hypertension, Adult sp3 Forms: - Medication Reconciliation Form sp3 - Thank You Letter sp3 - Antibiotic Education sp3 - Prescription Opioid Use sp3 - Patient Portal Instructions sp3 - Leadership Thank You Letter sp3 Signatures: Dispatcher [employer] EDMS David Smith MD MD rn Bryson, James RN RN jb4 Pranay Hernandez MD MD sp3 Amelia Clarke RN RN vc1 Uma Holley RN lg3 Corrections: (The following items were deleted from the chart) 19:23 19:19 Constitutional: Negative for fever, chills, and weight loss, Eyes: Negative for rn injury, pain, redness, and discharge, Neck: Negative for injury, pain, and swelling, Cardiovascular: Negative for chest pain, palpitations, and edema, Respiratory: Negative for shortness of breath, cough, wheezing, and pleuritic chest pain, Abdomen/GI: Negative for abdominal pain, nausea, vomiting, diarrhea, and constipation, MS/Extremity: Negative for injury and deformity, Skin: Negative for injury, rash, and discoloration, Neuro: Positive for posterior headache, negative for weakness or numbness rn
--- NOTE | 2023-03-04 21:30 | ER ---
Nurse's Notes [facility] Name: Riley Whalen Age: 52 yrs Sex: Male : 1970 Arrival Date: 03/04/2023 Time: 18:45 Bed 3 Private MD: Diagnosis: Headache, hypertension induced headache, hypertensive urgency Presentation: 03/04 19:03 Chief complaint: Patient states: Right sided neck pain since Saturday. Ibuprofen helped vc1 Saturday morning but today it is getting worse and worse. Ebola Screen: Patient negative for fever greater than or equal to 101.5 degrees Fahrenheit, and additional compatible Ebola Virus Disease symptoms Patient denies exposure to infectious person. Patient denies travel to an Ebola-affected area in the 21 days before illness onset. No symptoms or risks identified at this time. Initial Sepsis Screen: Does the patient meet any 2 criteria? No. Patient's initial sepsis screen is negative. Does the patient have a suspected source of infection? No. Patient's initial sepsis screen is negative. Risk Assessment: Do you want to hurt yourself or someone else? Patient reports no desire to harm self or others. Onset of symptoms was March 03, 2023. 19:03 Method Of Arrival: Ambulatory vc1 19:03 Acuity: VIOLETA 3 vc1 21:37 Coronavirus screen: At this time, the client does not indicate any symptoms associated lg3 with coronavirus-19. Triage Assessment: 19:10 General: Appears in no apparent distress. uncomfortable, Behavior is calm, cooperative, vc1 appropriate for age. Pain: Complains of pain in right posterior aspect of neck and right lateral aspect of neck Pain does not radiate. Pain currently is 10 out of 10 on a pain scale. Alleviated by medications. Neuro: Reports headache. Cardiovascular: No deficits noted. Respiratory: Airway is patent Respiratory effort is even, unlabored, Respiratory pattern is regular, symmetrical. Historical: - Allergies: 19:06 No Known Allergies; vc1 - Home Meds: 19:06 unknown blood pressure medication [Active]; losartan oral [Active]; vc1 - PMHx: 19:06 Hypertension; vc1 - PSHx: 19:06 None; vc1 - Immunization history:: Client reports receiving the 2nd dose of the Covid vaccine. - Social history:: Smoking status: Patient denies any tobacco usage or history of. - Family history:: not pertinent. - Hospitalizations: : No recent hospitalization is reported. Screenin:59 [facility] ED Fall Risk Assessment (Adult) History of falling in the last 3 months, lg3 including since admission No falls in past 3 months (0 pts). Abuse screen: Denies threats or abuse. Denies injuries from another. Nutritional screening: No deficits noted. Tuberculosis screening: No symptoms or risk factors identified. Assessment: 19:59 General: Appears in no apparent distress. comfortable, Behavior is calm, cooperative. lg3 Pain: Complains of pain in head and neck. Neuro: No deficits noted. Mckeon Agitation-Sedation Scale (RASS): 0 - Alert and Calm Level of Consciousness is awake, alert, obeys commands, Oriented to person, place, time, situation, Reports headache. Cardiovascular: No deficits noted. Denies chest pain, shortness of breath, Capillary refill < 3 seconds Clubbing of nail beds is absent JVD is absent Patient's skin is warm and dry. Respiratory: No deficits noted. Airway is patent Respiratory effort is even, unlabored, Respiratory pattern is regular, symmetrical. GI: No deficits noted. No signs and/or symptoms were reported involving the gastrointestinal system. : No deficits noted. No signs and/or symptoms were reported regarding the genitourinary system. EENT: No deficits noted. No signs and/or symptoms were reported regarding the EENT system. Derm: No deficits noted. No signs and/or symptoms reported regarding the dermatologic system. Skin is intact, is healthy with good turgor, Skin is dry, Skin is normal, Skin temperature is warm. Musculoskeletal: No deficits noted. Circulation, motion, and sensation intact. Range of motion: intact in all extremities, Reports pain in neck. 21:25 Reassessment: Patient appears in no apparent distress at this time. No changes from lg3 previously documented assessment. Patient and/or family updated on plan of care and expected duration. Pain level reassessed. Patient is alert, oriented x 3, equal unlabored respirations, skin warm/dry/pink. Vital Signs: 19:03 BP 183 / 135; Pulse 71; Resp 16; Temp 98; Pulse Ox 99% ; Weight 83.91 kg; Height 6 ft. vc1 0 in. ; Pain 10/10; 19:59 BP 164 / 124; Pulse 84; Resp 17 S; Pulse Ox 97% on R/A; lg3 20:20 BP 140 / 112; Pulse 72; Resp 16; Pulse Ox 94% on R/A; jb4 21:01 BP 140 / 96; Pulse 66; Resp 16; Pulse Ox 95% ; jb4 19:03 Body Mass Index 25.09 (83.91 kg, 182.88 cm) vc1 19:03 Pain Scale: Adult vc1 19:03 Out of blood pressure meds, takes Losartan vc1 ED Course: 18:48 Patient arrived in ED. mr 19:04 David Smith MD is Attending Physician. rn 19:06 Triage completed. vc1 19:10 Arm band placed on right wrist. vc1 19:59 Patient has correct armband on for positive identification. Placed in gown. Bed in low lg3 position. Call light in reach. Side rails up X 1. Client placed on continuous cardiac and pulse oximetry monitoring. NIBP monitoring applied. vehicle monitor technician on. Door closed. Noise minimized. Warm blanket given. 19:59 Inserted saline lock: 18 gauge in left antecubital area, using aseptic technique. Blood lg3 collected. Patient maintains SpO2 saturation greater than 95% on room air. 20:01 Troponin High Sensitivity Sent. lg3 20:01 Protime (+inr) Sent. lg3 20:01 Ptt, Activated Sent. lg3 20:01 Basic Metabolic Panel Sent. lg3 20:01 CBC with Diff Sent. lg3 20:21 Fernando Del Rio, RN is Primary Nurse. jb4 20:47 Attending Physician role handed off by David Smith MD sp3 20:47 Pranay Hernandez MD is Attending Physician. sp3 20:49 CT Head Brain wo Cont In Process Unspecified. EDMS 20:49 CT Head Angio In Process Unspecified. EDMS 20:[address] In Process Unspecified. EDMS 21:30 Bartolome Coronel MD is Referral Physician. sp3 21:37 No provider procedures requiring assistance completed. IV discontinued, intact, lg3 bleeding controlled, No redness/swelling at site. Pressure dressing applied. Administered Medications: 19:57 Drug: Ondansetron IVP 4 mg IVP once; over 2 minutes Route: IVP; Site: left antecubital; jb4 21:35 Follow up: Response: No adverse reaction lg3 19:57 Drug: metoCLOPramide IVP 5 mg IVP once; over 1 to 2 minutes Route: IVP; Site: left jb4 antecubital; 21:35 Follow up: Response: No adverse reaction lg3 19:57 Drug: cloNIDine PO 0.1 mg PO once Route: PO; jb4 21:35 Follow up: Response: No adverse reaction; Marked relief of symptoms; Blood pressure is lg3 lowered 19:58 Drug: morphine IVP or IV 4 mg IVP once over 4 mins Route: IVP; Infused Over: 4 mins; jb4 Site: left antecubital; 21:35 Follow up: Response: No adverse reaction; Marked relief of symptoms lg3 21:34 Not Given (Physician Discretion): clonidine0.1 mg PO once lg3 Medication: 21:37 VIS not applicable for this client. lg3 Outcome: 21:30 Discharge ordered by . sp3 21:37 Discharged to home ambulatory, lg3 21:37 Condition: stable 21:37 Discharge instructions given to patient, Instructed on discharge instructions, follow up and referral plans. Demonstrated understanding of instructions, follow-up care, 21:37 Patient left the ED. lg3 Signatures: Dispatcher [employer] EDMS Maxine Garza, Reg Reg mr David Smith MD MD rn Bryson, James, RN RN jb4 Uma Holley RN RN lg3 Pranay Hernandez MD MD sp3 Amelia Clarke RN RN vc1
[2023-03-04 22:33] VITALS: TEMP 98
[2023-03-04 22:38] VITALS: BP 140/96; O2SAT 95
--- NOTE | 2023-03-06 17:27 | EKG ---
Test Date: 2023-03-04 Test Time: 19:45:12 [employer] Teacher: KASSIDY MEASUREMENT RESULTS: Intervals: Rate: 67 LA: 190 QRSD: 88 QT: 376 QTc: 397 Annabella: P: 55 LA: 190 QRS: -2 T: 10 INTERPRETIVE STATEMENTS: Normal sinus rhythm with sinus arrhythmia Nonspecific ST abnormality Abnormal ECG Compared to ECG 01/02/2017 06:27:58 ST (T wave) deviation now present Electronically Signed On 03-06-23 17:21:51 AEROTRIANGULATION SPECIALIST by Jacky Resendez
== END 2023-03-04 21:37 | disposition home or self-care (01) ==
LOC: ER 18:45
DX: I16.0 Hypertensive urgency (principal)
CPT/HCPCS: 93005; 85025; 80048; 36415; 85610; 85730; 84484; 70450; 70496; 70498; 96375; 96374; 99285; Q9967; J2765